=== PATIENT | male | born 1995 | race African-American/Black ===

== ENCOUNTER 2018-05-22 23:59 | Emergency (ER) | payer BC, MEDICAID ==
[~2018-05-22] VITALS: Ht 177.8 cm; Wt 68.0 kg
[2018-05-23] MEDS ORDERED: ONDANSETRON HCL 4MG/2ML INJ IV STA (01:01)
[2018-05-23] MEDS ORDERED: SODIUM CHLORIDE 0.9% 1,000 ML IV ONE ×2 (01:01→03:00)
[2018-05-23] MEDS ORDERED: MORPHINE SULFATE 4 MG/ML CPJ (NOT FOR IM USE) IV STA (01:01)
[2018-05-23 01:30] LABS: HEMATOCRIT. 41.5 % (42.0-52.0); MEAN CORPUSCULAR VOLUME 94.9 fL (80.0-94.0); MEAN PLATELET VOLUME 7.9 fl (7.4-10.4); RED BLOOD CELL COUNT 4.37 mill/uL (4.7-6.1); RED CELL DISTRIBUTION WIDTH 13.5 % (11.6-14.6)
[2018-05-23 01:35] LABS: CHLORIDE 103 mEq/L (98-107)
[2018-05-23] MEDS ORDERED: METOCLOPRAMIDE HCL 10MG/2ML VIAL IV ONE (02:15)
[2018-05-23 02:24] LABS: CLARITY URINE TURBID (CLEAR); COLOR URINE YELLOW (YELLOW); KETONES URINE 3+ (NEGATIVE); LEUKOCYTE ESTERASE URINE NEGATIVE (NEGATIVE); NITRITE URINE NEGATIVE (NEGATIVE); OCCULT BLOOD URINE NEGATIVE (NEGATIVE); PROTEIN URINE TRACE (NEGATIVE)
[2018-05-23] MEDS ORDERED: FAMOTIDINE 20MG/2ML VIAL IV ONE (03:00)
[2018-05-23 03:06] LABS: *COCAINE SCREEN URINE NEGATIVE (NEGATIVE); METHADONE URINE SCREEN NEGATIVE (NEGATIVE); OPIATES URINE SCREEN NEGATIVE (NEGATIVE)
[2018-05-23 03:07] LABS: *AMPHETAMINES SCREEN URINE NEGATIVE (NEGATIVE); *BARBITURATES SCREEN URINE NEGATIVE (NEGATIVE); *BENZODIAZEPINES SCREEN URINE NEGATIVE (NEGATIVE); CANNABINOID URINE SCREEN PRESUMTIVE POSITIVE (NEGATIVE); PHENCYCLIDINE URINE SCREEN NEGATIVE (NEGATIVE)
[2018-05-23 05:41] VITALS: BP 104/60
[2018-05-23 09:38] LABS: PLATELET ESTIMATE NORMAL
[2018-05-23 09:39] LABS: PLATELET 205 x1000/uL (130-400)
== END 2018-05-23 05:43 | disposition home or self-care (01) ==
LOC: ER 23:59
DX: F12.188 Cannabis abuse with other cannabis-induced disorder (principal); R10.13 Epigastric pain; R11.2 Nausea with vomiting, unspecified; R19.7 Diarrhea, unspecified; Z91.018 Allergy to other foods
CPT/HCPCS: 36415; 71045; 80053; 80305; 81003; 83690; 85025; 96361; 96374; 96375; 99284; J2270; J2405; J2765; J3490; J7030; Z7610

== ENCOUNTER 2018-05-24 10:25 | Emergency (ER) | payer BC, MEDICAID ==
[~2018-05-24] VITALS: Ht 177.8 cm; Wt 70.0 kg
[2018-05-24] MEDS ORDERED: SODIUM CHLORIDE 0.9% 1,000 ML IV ONE ×2 (11:02→12:59)
[2018-05-24] MEDS ORDERED: FAMOTIDINE 20MG/2ML VIAL IV STA (11:02)
[2018-05-24] MEDS ORDERED: METOCLOPRAMIDE HCL 10MG/2ML VIAL IV ONE (11:15)
[2018-05-24] MEDS ORDERED: DIPHENHYDRAMINE 50MG/ML VIAL IV ONE (11:15)
[2018-05-24 11:58] LABS: HEMATOCRIT. 41.5 % (42.0-52.0); MEAN CORPUSCULAR HEMOGLOBIN 32.1 pg (28.0-32.0); MEAN CORPUSCULAR VOLUME 95.2 fL (80.0-94.0); PLATELET 193 x1000/uL (130-400); RED BLOOD CELL COUNT 4.36 mill/uL (4.7-6.1); RED CELL DISTRIBUTION WIDTH 13.8 % (11.6-14.6)
[2018-05-24 12:05] LABS: CHLORIDE 109 mEq/L (98-107)
[2018-05-24 12:36] LABS: PLATELET ESTIMATE NORMAL
[2018-05-24] MEDS ORDERED: HALOPERIDOL LACTATE 5MG/ML VIAL IM ONE (13:00)
[2018-05-24] MEDS ORDERED: ONDANSETRON HCL 4MG/2ML INJ IV ONE (13:30)
[2018-05-24] MEDS ORDERED: IOHEXOL-300 100 ML BOTTLE ONE (15:19)
[2018-05-24] MEDS ORDERED: MORPHINE SULFATE 4 MG/ML CPJ (NOT FOR IM USE) IV ONE (15:45)
[2018-05-24 18:00] VITALS: BP 94/54
== END 2018-05-24 18:20 | disposition home or self-care (01) ==
LOC: ER 10:25
DX: F12.188 Cannabis abuse with other cannabis-induced disorder (principal); Z91.018 Allergy to other foods
CPT/HCPCS: 36415; 74177; 80053; 83690; 85025; 96361; 96372; 96374; 96375; 99284; J1200; J1630; J2270; J2405; J2765; J3490; J7030; Q9967